=== PATIENT | female | born 1955 | race Caucasian/White ===

== ENCOUNTER → 2023-07-26 11:51 | Outpatient (BNVA) | payer MEDICARE, SELFPAY | PROVIDERS: PCP Nurse Practitioner Family; Visit Provider Nurse Practitioner Family | DX: Z13.6 Encounter for screening for cardiovascular disorders (principal); Z79.899 Other long term (current) drug therapy; E55.9 Vitamin D deficiency, unspecified; Z78.0 Asymptomatic menopausal state; M54.32 Sciatica, left side; M54.9 Dorsalgia, unspecified | CPT/HCPCS: 80053; 80061; 81003; 82306; 83036; 84443; 85025 ==